=== PATIENT | female | born 1985 | race Caucasian/White ===

== ENCOUNTER 2017-05-06 20:13 | Observation (INO) | payer OTHER, SELFPAY ==
[~2017-05-06 20:13] MED LIST: CLEOCIN HCL300 MG PO; COLACE-T50 MG PO; FIBER1 GM PO; FLEXERIL5 MG PO; FOLIC ACID0.4 MG PO; GLUCOPHAGE500 MG/TAB PO; HUMULIN N100 U/ML SQ; NORCO 5/325 TAB1 TAB PO; NOVOLOG100 U/M SQ; VIVA CT PRENAT1 EACH PO
[2017-05-06] MEDS ORDERED: HUMALOG100 UNITS/ (20:37)
[2017-05-06] MEDS ORDERED: STOOL SOFTENER250 M2 PO (20:38)
[2017-05-06] MEDS ORDERED: FOLIC ACID1 M1 PO (20:38)
[2017-05-06] MEDS ORDERED: SYNTHROID50 MC1 PO (20:39)
== END 2017-05-06 21:48 ==
LOC: LDR 20:13
PROVIDERS: ADMIT Obstetrics & Gynecology
DX: O46.93 Antepartum hemorrhage, unspecified, third trimester (principal); Z3A.35 35 weeks gestation of pregnancy

== ENCOUNTER 2017-05-19 02:54 | Inpatient (IN) | payer OTHER, SELFPAY ==
[~2017-05-19 02:54] MED LIST changes: +FOLIC ACID1 M1 PO; +HUMALOG100 UNITS/; +STOOL SOFTENER250 M2 PO; +SYNTHROID50 MC1 PO
[2017-05-19 04:32] LABS: BASO % 0.1 % (0-2); EOS % 0.9 % (0-7); EOSINOPHIL ABSOLUTE COUNT 0.1 tho/cmm (0.0-0.7); HGB-HEMOGLOBIN 12.5 gm/dl (12.0-15.5); IMMATURE GRANULOCYTES ABSOLUTE 0.04 tho/cmm (0-0.03); IMMATURE GRANULOCYTES PERCENT 0.3 % (0-0.3); LYMPH % 17.1 % (20-45); MCH (MEAN CORPUSCULAR HGB) 28.8 pg (28.0-32.0); MCHC MEAN CORPUSCULAR HGB CONC 33.8 % (32.0-36.0); MCV (MEAN CELL VOLUME) 85.3 fl (82.0-96.0); MEAN PLATELET VOLUME 10.1 cmc (9.4-12.4); MONO % 5.1 % (0-12); MONOCYTE ABSOLUTE COUNT 0.6 tho/cmm (0.0-1.2); NEUTROPHILS % 76.5 % (40-80); PLATELET COUNT 265 tho/cmm (150-450); RED BLOOD COUNT 4.34 mil/cmm (4.00-5.20); WHITE BLOOD COUNT 11.8 tho/cmm (4.0-10.0)
[2017-05-20 06:01] LABS: BASO % 0.2 % (0-2); EOS % 1.2 % (0-7); EOSINOPHIL ABSOLUTE COUNT 0.1 tho/cmm (0.0-0.7); HCT-HEMATOCRIT 31.7 % (34.0-49.0); HGB-HEMOGLOBIN 10.5 gm/dl (12.0-15.5); IMMATURE GRANULOCYTES ABSOLUTE 0.02 tho/cmm (0-0.03); IMMATURE GRANULOCYTES PERCENT 0.2 % (0-0.3); LYMPH % 19.2 % (20-45); LYMPH ABSOLUTE COUNT 2.2 tho/cmm (0.8-4.5); MCH (MEAN CORPUSCULAR HGB) 28.5 pg (28.0-32.0); MCHC MEAN CORPUSCULAR HGB CONC 33.1 % (32.0-36.0); MCV (MEAN CELL VOLUME) 86.1 fl (82.0-96.0); MEAN PLATELET VOLUME 9.9 cmc (9.4-12.4); MONO % 5.2 % (0-12); MONOCYTE ABSOLUTE COUNT 0.6 tho/cmm (0.0-1.2); NEUTROPHIL ABSOLUTE COUNT 8.6 tho/cmm (1.6-8.0); NEUTROPHIL-AUTOMATED 8.6 tho/cmm (1.6-8.0); PLATELET COUNT 229 tho/cmm (150-450); RED BLOOD COUNT 3.68 mil/cmm (4.00-5.20); RED CELL DISTRIBUTION WIDTH 13.3 % (12.4-16.4); WHITE BLOOD COUNT 11.7 tho/cmm (4.0-10.0)
[2017-05-21] MEDS ORDERED: IBUPROFEN800 M1 PO (13:18)
== END 2017-05-21 18:47 | DRG 774 ==
LOC: LDR 02:54 → OBGE 12:35
PROVIDERS: ADMIT Obstetrics & Gynecology
PROC: 10E0XZZ Delivery of Products of Conception, External Approach (ICD-10-PCS; principal; 2017-05-19)
PROC: 0HQ9XZZ Repair Perineum Skin, External Approach (ICD-10-PCS; 2017-05-19)
PROC: 4A1HXCZ Monitoring of Products of Conception, Cardiac Rate, External Approach (ICD-10-PCS; 2017-05-19)
DX: O24.02 Pre-existing type 1 diabetes mellitus, in childbirth (principal); E10.9 Type 1 diabetes mellitus without complications; Z3A.36 36 weeks gestation of pregnancy; Z37.0 Single live birth; Z79.4 Long term (current) use of insulin
CPT/HCPCS: J1815; J2590